=== PATIENT | female | born 1990 | race African-American/Black ===

== ENCOUNTER 2019-02-05 16:08 | Emergency (ER) | payer SELFPAY ==
[~2019-02-05] VITALS: Ht 162.6 cm; Wt 63.0 kg
[2019-02-05] MEDS ORDERED: AMOX-494 MT (16:19)
[2019-02-05] MEDS ORDERED: ACETAMINOPHEN 325MG TABLET PO STA (17:17)
[2019-02-05] MEDS ORDERED: METOCLOPRAMIDE HCL 10MG/2ML VIAL IV ONE (17:30)
[2019-02-05] MEDS ORDERED: KETOROLAC 15MG/ML VIAL IV ONE (17:30)
[2019-02-05] MEDS ORDERED: SODIUM CHLORIDE 0.9% 1000ML BAG (SEPSIS BOLUS) IV ONE (17:30)
[2019-02-05 18:08] LABS: BASOPHILS % 0.5 % (0.0-2.0); EOSINOPHILS % 0.1 % (0.0-5.0); HEMATOCRIT. 33.3 % (36.0-48.0); HEMOGLOBIN. 10.9 g/dL (12.0-16.0); MEAN CORPUSCULAR VOLUME 88.3 fL (81.0-99.0); MONOCYTES % 5.5 % (2.0-8.0); NEUTROPHILS % 83.9 % (40.0-76.0); PLATELET 218 x1000/uL (130-400); RED BLOOD CELL COUNT 3.77 mill/uL (4.2-5.4); RED CELL DISTRIBUTION WIDTH 14.3 % (11.6-14.6)
[2019-02-05 18:09] LABS: CHLORIDE 106 mEq/L (98-107)
[2019-02-05 18:18] LABS: HCG SCREEN NEGATIVE
[2019-02-05] MEDS ORDERED: IOHEXOL-300 100 ML BOTTLE ONE (20:10)
[2019-02-05] MEDS ORDERED: AMOXICILLIN 500 MG CAPSULE PO ONE (21:15)
[2019-02-05 21:30] VITALS: BP 105/64
== END 2019-02-05 21:30 | disposition home or self-care (01) ==
LOC: ER 16:08
DX: H60.91 Unspecified otitis externa, right ear (principal); R50.9 Fever, unspecified; R51 Headache; H92.01 Otalgia, right ear; R00.0 Tachycardia, unspecified
CPT/HCPCS: 36415; 70487; 80053; 81025; 83605; 84703; 85025; 87040; 93005; 96374; 96375; 99284; J1885; J2765; J7030; Q9967